=== PATIENT | female | born 1990 | race Caucasian/White ===

== ENCOUNTER 2016-08-15 19:27 | Emergency (ER) | payer MEDICAID ==
[2016-08-15] MEDS ORDERED: Ibuprofen 400 MG TAB ONE (20:12)
[2016-08-15] MEDS ORDERED: Ibuprofen 200 MG TAB ONE (20:12)
== END 2016-08-15 20:59 | disposition home or self-care (01) ==
LOC: ER 19:27
DX: S60.221A Contusion of right hand, initial encounter (principal); W19.XXXA Unspecified fall, initial encounter